=== PATIENT | female | born 1965 | race Caucasian/White ===

== ENCOUNTER 2021-04-24 16:38 | Inpatient (IN) | payer MEDICAID, SELFPAY ==
--- NOTE | 2021-04-20 21:30 | NUR ---
V/S WAS CHECKED Q 15 MINUTES FOR AN HOUR, CE=212 MG/DL, 2 UNITS HUMOLOG WAS GIVEN SQ TOLERATED WELL.
[~2021-04-24] VITALS: Ht 157.5 cm; Wt 53.1 kg
[2021-04-24 16:46] VITALS: BP 80/40
--- NOTE | 2021-04-24 17:00 | NUR ---
PT W/C ASSISTED TO BED 4.
--- NOTE | 2021-04-24 17:08 | NUR ---
56 Y/O FEMALE BIB FAMILY FOR GEN WEAK X1WEEK. PT DAUGHTER STATES SHE HAS BREAST CANCER AND HAD A LEFT MASTECTOMY AND STARTED CHEMO B0SOWUE AGO. THIS WEEK SHE BECAME MORE WEAK. ON ASSESSMENT PT IS VERY LETHARGIC BUT AROUSED EASILY. WHEN PT STATES +N/NO VOMITING, DENIES FEVER/CHILLS. PMH: BREAST CA NKA
[2021-04-24] MEDS ORDERED: OMEP40EC14 PO (17:28)
[2021-04-24] MEDS ORDERED: GLIP10TE PO (17:28)
[2021-04-24] MEDS ORDERED: DEC4 PO (17:28)
[2021-04-24] MEDS ORDERED: CAPE500T1 PO (17:28)
[2021-04-24] MEDS ORDERED: HYDR-4004 PO (17:28)
[2021-04-24] MEDS ORDERED: ATOR40TA PO (17:28)
[2021-04-24] MEDS ORDERED: SITA50TA3 PO (17:28)
[2021-04-24] MEDS ORDERED: LOSA100T1 PO (17:28)
[2021-04-24] MEDS ORDERED: FAMO-90 PO (17:28)
[2021-04-24] MEDS ORDERED: VITB12 PO (17:28)
[2021-04-24] MEDS ORDERED: METF850T PO (17:28)
[2021-04-24] MEDS ORDERED: ASPI-1822 PO (17:28)
[2021-04-24] MEDS ORDERED: NACL 0.9% 1,500 ML IV SCH (17:35)
--- NOTE | 2021-04-24 17:56 | NUR ---
XRAY AT BEDSIDE
--- NOTE | 2021-04-24 18:00 | NUR ---
DR LIVINGSTON AT BEDSIDE EXAMINING PT
[2021-04-24] MEDS ORDERED: INSU100S5 SUBQ (18:05)
[2021-04-24] MEDS ORDERED: CANNIBUS IH (18:05)
[2021-04-24 18:09] LABS: BASOPHILS % (AUTO) 0.3 % (0.0-2.0); HEMATOCRIT 30.5 % (36-48); HEMOGLOBIN 10.6 g/dL (12.0-16.0); LYMPHOCYTES # (AUTO) 0.2 K/uL (2.5-16.5); LYMPHOCYTES % (AUTO) 2.9 % (20.5-51.1); MEAN CORPUSCULAR HEMOGLOBIN 34 pg (27-31); MEAN CORPUSCULAR HGB CONC 35 g/dL (33-37); MEAN CORPUSCULAR VOLUME 96.7 fL (80-94); MONOCYTES # (AUTO) 0.2 K/uL (0.8-1.0); MONOCYTES % (AUTO) 2.4 % (1.7-9.3); NEUTROPHILS # (AUTO) 6.3 K/uL (1.8-7.7); NEUTROPHILS % (AUTO) 94.4 % (42.2-75.2); PLATELET COUNT (AUTO) 62 K/uL (140-450); RED BLOOD CELL COUNT(AUTO) 3.16 MIL/uL (4.20-5.40); RED CELL DISTRIBUTION WIDTH 15.6 % (11.6-13.7); WHITE BLOOD COUNT (AUTO) 6.7 K/uL (4.8-10.8)
[2021-04-24] MEDS ORDERED: cefTRIAXone 2,000 MG in DEXTROSE 5% 100 ML IV ONE (18:45)
[2021-04-24 18:56] LABS: ALBUMIN 3.2 g/dL (3.4-5.0); ANION GAP 14.2 (8-16); CARBON DIOXIDE 22.9 mmol/L (21-32); CREATININE 0.5 mg/dL (0.6-1.3); POTASSIUM 3.1 mmol/L (3.5-5.1); TOTAL BILIRUBIN 0.9 mg/dL (0.0-1.0)
[2021-04-24] MEDS ORDERED: cefTRIAXone 2,000 MG VIAL ONE (18:57)
--- NOTE | 2021-04-24 19:14 | NUR ---
received report from Kush PEDRO for continuity of care
--- NOTE | 2021-04-24 19:14 | NUR ---
Radiology at bedside
--- NOTE | 2021-04-24 19:14 | NUR ---
REPORT GIVEN TO CODY PEDRO FOR CONTINUITY OF CARE
[2021-04-24 19:19] LABS: PROTHROMBIN TIME 10.1 secs (10.8-13.4)
--- NOTE | 2021-04-24 19:35 | NUR ---
COVID ESTHER SWAB COLLECTED AND SENT TO LAB
--- NOTE | 2021-04-24 19:51 | NUR ---
STRAIGHT CATHETERIZATION DONE ORDERED. URINE SAMPLE OBTAINED AND SENT TO LAB.
[2021-04-24 19:59] LABS: APPEARANCE,URINE CLEAR (CLEAR); BILIRUBIN,URINE NEGATIVE (NEGATIVE); BLOOD, URINE NEGATIVE (NEGATIVE); COLOR,URINE ORANGE (YELLOW); LEUKOCYTE ESTERASE ,URINE NEGATIVE (NEGATIVE); NITRITE, URINE NEGATIVE (NEGATIVE); UGLUCOSE 2+ (NEGATIVE)
--- NOTE | 2021-04-24 20:03 | NUR ---
Note melissaone in EDM - 04/24/21 at 2007 by ESTHER Patient discharged with v/s stable. Written and verbal after care instructions given and explained. Patient alert, oriented and verbalized understanding of instructions. Ambulatory with steady gait. All questions addressed prior to discharge. IV ACCESS AND ID band removed. Patient advised to follow up with PMD. Rx of OZZIE SANCHEZ given. Patient educated on indication of medication including possible reaction and side effects. Opportunity to ask questions provided and answered.
--- NOTE | 2021-04-24 20:16 | NUR ---
PT TAKEN TO CT
--- NOTE | 2021-04-24 20:26 | NUR ---
PT BACK FROM CT
--- NOTE | 2021-04-24 20:34 | NUR ---
REPORT GIVEN TO STAS PEDRO VIA PHONE
[2021-04-24 20:41] VITALS: BP 100/76
--- NOTE | 2021-04-24 20:41 | NUR ---
PATIENT BROUGHT IN BY A GURNEY FROM THE ED. PATIENTS CHIEF COMPLAINT IS GENERALIZED WEAKNESS, SOB, BURNING WHEN URINATING, AND INCREASED FATIGUE. PATIENT DIAGNOSIS IS METABOLIC ENCEPHALOPATHY, HYPONATREMIA (SODIUM LEVEL 126), AND PNEUMONIA. VITALS SIGNS: RR: 18, HR 76, BP 100/76, SPO2 100, TEMP 98.3. PATIENT IS ALERT AND ORIENTED X2, PERSON AND PLACE. PATIENT ON TELEMONITOR SHOWING SIGNS OF SINUS RHYTHM. PATIENT RR 18 ON ROOM AIR SHOWING NO SIGNS OF RESPIRATORY DISTRESS, SATING AT 100%. PATIENT STATED LAST BOWEL MOVEMENT WAS THIS MORNING 04/24/21. PATIENT COMPLAINS OF BURNING WHEN URINATING AND INCREASED FREQUENCY. PATIENT HAS A MED PORT ON HER RIGHT CHEST. PATIENT RECEIVES CHEMO THERAPY FOR BREAST CANCER SHE WAS DIAGNOSED WITH 1 YEAR AND 3 MONTHS AGO. PATIENT HAS MULTIPLE BRUISES SCATTERED ACROSS HER BODY. RED LUMP NOTED ON UPPER LEFT EXTREMITY AND BACK. PATIENT HAS A 20GAUGE RIGHT AC IN PLACE THAT IS CLEAN, DRY, INTACT AND PATENT. FALL PRECAUTIONS IN PLACE. EDUCATION PROVIDED ON THE CALL LIGHT THAT IS WITHIN REACH. WILL CONTINUE TO MONITOR.
--- NOTE | 2021-04-24 20:42 | NUR ---
RECEIVED PATIENT FROM CODY. PT BROUGHT IN VIA [facility]. PT IS AAOX2-3 SELF,PLACE AND TIME. BIB FAMILY FOR C/C GENERALIZED WEAKNESS, SOB, BURNING WHEN URINATING, AND INCREASED FATIGUE. DX:METABOLIC ENCEPHALOPATHY, HYPONATREMIA, AND PNEUMONIA. RESPIRATIONS ARE EQUAL AND UNLABORED ON ROOM AIR. LUNG SOUNDS ARE CLEAR. PT SAT WELL 100%. PT WITH PMH OF BREAST CANCER WITH L MASTECTOMY HAS MEDI PORT ON R UPPER CHEST RECEIVING CHEMO 3X/WEEK FOR 4 WEEKS CURRENTLY ON 3RD WEEK. SKIN IS INTACT BUT, HAS MULTIPLE BRUISES SCATTERED ACROSS HER BODY. RED LUMP NOTED ON UPPER LEFT EXTREMITY AND BACK. IV ON RAC 20G AC IS CLEAN, DRY, INTACT AND PATENT. PT ENDORSES HX OF FALLS WITH GEN WEAKNESS USES WALKER AT HOME. FALL PRECAUTIONS IN PLACE. MRSA SWAB OBTAINED. ORIENTED PT TO ROOM, STAFF, CALL LIGHT, AND VISITOR POLICY. ALL NEEDS MET. WILL CONTINUE TO MONITOR.
--- NOTE | 2021-04-24 20:55 | NUR ---
RECEIVED CRITICAL CT HEAD RESULTS PAGED DR SIN. NO NEW ORDERS MD WILL EXPLAIN RESULTS TO PATIENT TOMORROW.
--- NOTE | 2021-04-24 21:00 | NUR ---
Patient will be admitted to care of DR. SIN. Admited to TELEMETRY. Will go to room 111A. Belongings list completed. Report to STAS PEDRO VIA PHONE.
--- NOTE | 2021-04-24 21:07 | NUR ---
PT REQUESTING FOR DAUGHTER CATA TO BE UPDATED. CATA CONTACTED AND UPDATE GIVEN. . PT AND DAUGHTER CURRENTLY ON THE PHONE WILL CONTINUE TO MONITOR.
[2021-04-24] MEDS ORDERED: KCL 20 MEQ/WATER INJ PREMIX 200 ML IV ONE (21:10)
[2021-04-25] VITALS: BP 95/64
--- NOTE | 2021-04-25 00:18 | NUR ---
ROUNDED ON PATIENT. PATIENT IS RESTING COMFORTABLY IN BED SHOWING NO SIGNS OF ACUTE DISTRESS. RESPIRATIONS ARE EVEN AND UNLABORED. SAFETY MEASURES IN PLACE, CALL LIGHT WITHIN REACH. WILL CONTINUE TO MONITOR.
[2021-04-25] MEDS ORDERED: DEXTROSE 50% 50 ML SYR IVP PRN (00:50)
[2021-04-25] MEDS ORDERED: ACETAMINOPHEN 325 MG TAB PO PRN ×2 (01:20→09:20)
--- NOTE | 2021-04-25 01:20 | NUR ---
PATIENT REPOSITIONED FOR COMFORT MEASURES. PATIENT REPORTS BEING MORE COMFORTABLE AND THAT HER NEEDS ARE MEET. RESPIRATORY EVEN AND UNLABORED ON ROOM AIR SHOWING NO SIGNS OF ACUTE DISTRESS. SAFETY MEASURES IN PLACE WITH CALL LIGHT WITHIN REACH. WILL CONTINUE TO MONITOR.
--- NOTE | 2021-04-25 02:26 | NUR ---
ROUNDED ON PATIENT. PATIENT IS ASLEEP IN BED SHOWING NO SIGNS OF ACUTE DISTRESS. RESPIRATIONS ARE EVEN AND UNLABORED. SAFETY MEASURES IN PLACE, CALL LIGHT WITHIN REACH. WILL CONTINUE TO MONITOR.
--- NOTE | 2021-04-25 03:57 | NUR ---
ROUNDED ON PATIENT. PATIENT IS ASLEEP IN BED, BREATHING EVEN AND UNLABORED WITH NO ACUTE DISTRESS NOTED. SAFETY MEASURES IN PLACE WITH CALL LIGHT WITHIN REACH. WILL CONTINUE TO MONITOR.
[2021-04-25 04:00] VITALS: BP 107/63
[2021-04-25] MEDS: BLOOD GLUCOSE MONITORING 1 DEV DEV FS SCH ×4 (06:08→21:00)
[2021-04-25] MEDS: INSULIN LISPRO SLIDING SCALE 100 UNITS/ML VIAL SUBQ PRN ×3 (06:09→22:15)
--- NOTE | 2021-04-25 06:15 | NUR ---
BLOOD GLUCOSE WAS TAKEN, 232, PER SLIDING SCALE 4 UNITS OF INSULIN WAS ADMINISTERED. PATIENT EDUCATION WAS PROVIDED AND PATIENT VERBALIZED UNDERSTANDING. SAFETY MEASURES IN PLACE. CALL LIGHT WITHIN REACH. WILL CONTINUE TO MONITOR.
[2021-04-25 06:56] LABS: ANION GAP 15.1 (8-16); CARBON DIOXIDE 23.7 mmol/L (21-32); CREATININE 0.4 mg/dL (0.6-1.3); POTASSIUM 3.8 mmol/L (3.5-5.1)
[2021-04-25 06:59] LABS: MAGNESIUM 1.7 mg/dL (1.8-2.4); PHOSPHORUS 2.6 mg/dL (2.5-4.9)
--- NOTE | 2021-04-25 07:13 | NUR ---
PATIENT WAS ENDORSED TO DAY SHIFT FOR CONTINUITY OF CARE. POC DISCUSSED. PATIENT IN STABLE CONDITION.
--- NOTE | 2021-04-25 07:18 | NUR ---
RECEIVED REPORT FROM NIGHTSHIFT NURSE. PT RESTING IN BED. ABLE TO MAKE SOME NEEDS KNOWN. RESPIRATIONS EVEN AND UNLABORED WITH NO SOB OR RESPIRATORY DISTRESS. SKIN WARM AND DRY TO TOUCH. IV SITE ON RAC 20G IS CLEAN, DRY, AND INTACT. SAFETY MEASURES IN PLACE. WILL CONTINUE TO MONITOR
--- NOTE | 2021-04-25 07:30 | NUR ---
DAUGHTER CALLED AND WANTED AN UPDATE. UPDATE GIVEN. WILL CONTINUE TO MONITOR
[2021-04-25 08:00] VITALS: BP 91/61
[2021-04-25 08:09] LABS: HEMATOCRIT 29.2 % (36-48); HEMOGLOBIN 10.1 g/dL (12.0-16.0); MEAN CORPUSCULAR HEMOGLOBIN 33 pg (27-31); MEAN CORPUSCULAR HGB CONC 35 g/dL (33-37); MEAN CORPUSCULAR VOLUME 96.9 fL (80-94); RED BLOOD CELL COUNT(AUTO) 3.01 MIL/uL (4.20-5.40); RED CELL DISTRIBUTION WIDTH 15.1 % (11.6-13.7)
[2021-04-25 08:41] LABS: PLATELET COUNT (AUTO) 62 K/uL (140-450)
[2021-04-25 08:42] LABS: LYMPHOCYTES % (MANUAL) 6 % (20-46); MONOCYTES % (MANUAL) 4 % (5-12)
--- NOTE | 2021-04-25 08:56 | NUR ---
PATIENT HAS BEEN SCREENED AND CATEGORIZED MODERATE NUTRITION RISK. PATIENT WILL BE SEEN WITHIN 3-5 DAYS OF ADMISSION. 04/27/21 04/29/[address]
--- NOTE | 2021-04-25 09:15 | NUR ---
PT RESTING IN BED. ABLE TO MAKE SOME NEEDS KNOWN. NO SIGNS OF DISTRESS. WILL CONTINUE TO MONITOR
[2021-04-25] MEDS ORDERED: DOCUSATE SODIUM 100 MG GELCAP PO PRN (09:20)
[2021-04-25] MEDS ORDERED: ZOLPIDEM 5 MG TAB PO PRN (09:20)
[2021-04-25] MEDS ORDERED: ONDANSETRON 4 MG/2 ML VIAL IM/IVP PRN (09:20)
--- NOTE | 2021-04-25 09:30 | NUR ---
DAUGHTER CALLED AND WANTED AN UPDATE. UPDATE GIVEN. WILL CONTINUE TO MONITOR
[2021-04-25] MEDS: NACL 0.9% 1,000 ML IV SCH (09:54)
[2021-04-25 10:24] LABS: ALBUMIN 3.1 g/dL (3.4-5.0); ANION GAP 14.7 (8-16); CARBON DIOXIDE 23.8 mmol/L (21-32); CREATININE 0.4 mg/dL (0.6-1.3); POTASSIUM 3.5 mmol/L (3.5-5.1); TOTAL BILIRUBIN 0.5 mg/dL (0.0-1.0)
[2021-04-25 10:32] LABS: FREE T4 (FREE THYROXINE) 0.66 ng/dL (0.76-1.46); MAGNESIUM 1.8 mg/dL (1.8-2.4); PHOSPHORUS 2.7 mg/dL (2.5-4.9); THYROID STIMULATING HORMONE 0.31 uIU/mL (0.34-3.74)
[2021-04-25] MEDS ORDERED: MAG SULF 2000 MG/WATER PREMIX 50 ML IV SCH (11:15)
--- NOTE | 2021-04-25 11:30 | NUR ---
PT BLOOD SUGAR IS 169. PRN INSULIN TO BE ADMINISTERED PRESCRIBED PER MD ORDER. WILL CONTINUE TO MONITOR
[2021-04-25 12:00] VITALS: BP 90/54
--- NOTE | 2021-04-25 12:15 | NUR ---
ADMINISTERED PRN INSULIN PRESCRIBED PER MD ORDER. PT TOLERATED WELL. SAFETY MEASURES IN PLACE. WILL CONTINUE TO MONITOR
--- NOTE | 2021-04-25 13:20 | NUR ---
INSERTED CARDONA CATH PRESCRIBED PER MD ORDER. PT TOLERATED WELL. SAFETY MEASURES IN PLACE. WILL CONTINUE TO MONITOR
--- NOTE | 2021-04-25 14:12 | NUR ---
DC JILLIAN: RECEIVED ORDER TO ARRANGE DC TO [facility] FOR PT. PER PATIENTS DAUGHTER SHE IS REQUESTING [facility]. FAXED TO [facility] WILL FOLLOW UP. Addendum: 04/26/21 at 1058 by Arianna Ni CM JESSICA SIMMS: FOLLOWED UP WITH [facility] AND SPOKE TO UNFORTUNATELY, THEY CAN NOT ACCEPT PATIENT BECAUSE MEDICAL WOULD NOT COVER SKILLED BENEFITS FOR PT AND CHEMO THERAPY. Addendum: 04/27/21 at 1046 by Arianna Ni CM JESSICA WALSH: FAXED ALSO TO [facility], [facility], [facility], AND [facility] Addendum: 04/27/21 at 1646 by Arianna Ni CM JESSICA WALSH: RECEIVED A CALL FROM JOHAN AT [facility] THEY CAN NOT ACCEPT PATIENT.
--- NOTE | 2021-04-25 14:13 | NUR ---
LATE ENTRY -- ROCEPHIN INFUSION COMPLETED AT 1937 [place] [address]/24/21
[2021-04-25] MEDS: MORPHINE SULFATE 2 MG/ML SYR IVP PRN (14:43)
--- NOTE | 2021-04-25 14:43 | NUR ---
PATIENT COMPLAINED OF SEVERE BACK PAIN. PRN MORPHINE ADMINISTERED PRESCRIBED PER MD ORDER. PT TOLERATED WELL. SAFETY MEASURES IN PLACE. WILL CONTINUE TO MONITOR
[2021-04-25 16:00] VITALS: BP 120/61
--- NOTE | 2021-04-25 16:00 | NUR ---
DAUGHTER CATA CALLED AND WANTED AN UPDATE. UPDATE GIVEN. WILL CONTINUE TO MONITOR
--- NOTE | 2021-04-25 16:30 | NUR ---
PT BLOOD SUGAR IS 137. NO INSULIN NEEDED AT THIS TIME. SAFETY MEASURES IN PLACE. WILL CONTINUE TO MONITOR
--- NOTE | 2021-04-25 18:03 | NUR ---
ADMINISTERED SCHED MED PRESCRIBED PER MD ORDER. PT TOLERATED WELL. SAFETY MEASURES IN PLACE. WILL CONTINUE TO MONITOR
--- NOTE | 2021-04-25 19:15 | NUR ---
ENDORSED TO NIGHTSHIFT AT BEDSIDE FOR CONTINUITY OF CARE. PT IS STABLE
--- NOTE | 2021-04-25 19:16 | NUR ---
REPORT GIVEN FROM AM NURSE. PT IS AWAKE , ALERT , ON BED. IVF INFUSING ON THE RAC AT 60 ML/HR. NO SIGNS OF DISTRESS/SOB NOTED . RESPIRATION EVEN UNLABORED. SKIN WARM AND DRY TO TOUCH. FC DRAINING WELL TO YELLOW COLORED URINE. DENIES PAIN. WILL CONTINUE TO MONITOR.
[2021-04-25 20:00] VITALS: BP 103/65
[2021-04-25] MEDS ORDERED: metroNIDAZOLE 500 MG/NS PREMIX 100 ML IV SCH (21:00)
[2021-04-25 21:55] LABS: BARBITURATE, URINE NEGATIVE ng/ml (NEG <=200); BENZODIAZEPINE, URINE NEGATIVE ng/mL (NEG <=200); CANNABINOID, URINE POSITIVE ng/mL (NEG <=50); COCAINE, URINE NEGATIVE ng/mL (NEG <=300); OPIATE, URINE NEGATIVE ng/mL (NEG <=2000); PHENCYCLIDINE SCREEN,URINE NEGATIVE ng/mL (NEG <=25)
--- NOTE | 2021-04-25 22:09 | NUR ---
ADMINISTERED MEDICATION PER MD ORDERED.
[2021-04-25] MEDS ORDERED: VANCOMYCIN PER PHARMACY MC PRN (23:20)
[2021-04-25] MEDS ORDERED: VANCOMYCIN 1GM/DEXT 5% PREMIX 200 ML IV SCH (23:50)
[2021-04-26] VITALS: BP 98/71
[2021-04-26] MEDS ORDERED: VANCOMYCIN 1,000 MG VIAL ONE (00:51)
[2021-04-26] MEDS: NACL 0.9% 1,000 ML IV SCH ×2 (02:00→17:46)
[2021-04-26] MEDS: HYDROcodone/APAP 5/325 MG 1 TAB TAB PO PRN ×2 (02:07→23:52)
--- NOTE | 2021-04-26 02:08 | NUR ---
texted PICC RN for PICC placement, waiting for PICC RN to text back
[2021-04-26 04:00] VITALS: BP 100/48
[2021-04-26 06:42] LABS: HEMATOCRIT 26.6 % (36-48); HEMOGLOBIN 8.7 g/dL (12.0-16.0); MEAN CORPUSCULAR HEMOGLOBIN 32 pg (27-31); MEAN CORPUSCULAR HGB CONC 33 g/dL (33-37); MEAN CORPUSCULAR VOLUME 97.5 fL (80-94); PLATELET COUNT (AUTO) 46 K/uL (140-450); RED BLOOD CELL COUNT(AUTO) 2.73 MIL/uL (4.20-5.40); RED CELL DISTRIBUTION WIDTH 15.7 % (11.6-13.7); WHITE BLOOD COUNT (AUTO) 3.6 K/uL (4.8-10.8)
[2021-04-26] MEDS: BLOOD GLUCOSE MONITORING 1 DEV DEV FS SCH ×4 (06:46→21:30)
[2021-04-26] MEDS: INSULIN LISPRO SLIDING SCALE 100 UNITS/ML VIAL SUBQ PRN ×4 (06:47→21:32)
[2021-04-26 07:07] LABS: ANION GAP 13.6 (8-16); CARBON DIOXIDE 21.2 mmol/L (21-32); CREATININE 0.3 mg/dL (0.6-1.3)
[2021-04-26 07:08] LABS: T4 (THYROXINE) 4.3 ug/dL (4.5-12.0)
[2021-04-26 07:11] LABS: CHOL/HDL RATIO 1.7 (1-4.5); MAGNESIUM 1.9 mg/dL (1.8-2.4)
--- NOTE | 2021-04-26 07:25 | NUR ---
ENDORSED TO AM NURSE FOR CONTINUITY OF CARE. PT IS STABLE
--- NOTE | 2021-04-26 07:30 | NUR ---
RECEIVED BEDSIDE ENDORSEMENT FROM NIGHTSDCFT NURSE FOR CONTINUITY OF CARE.
[2021-04-26 07:46] LABS: EOSINOPHILS % (MANUAL) 1 % (0-4); LYMPHOCYTES % (MANUAL) 9 % (20-46); MONOCYTES % (MANUAL) 4 % (5-12)
[2021-04-26 07:47] LABS: POTASSIUM 2.8 mmol/L (3.5-5.1)
[2021-04-26 08:00] VITALS: BP 97/53
[2021-04-26] MEDS ORDERED: POTASSIUM CHLORIDE 10 MEQ TABER PO SCH (09:00)
[2021-04-26] MEDS ORDERED: POTASSIUM CHLORIDE 40 MEQ, LIDOCAINE MPF 1% 25 MG in NACL 0.9% 250 ML IV SCH (09:30)
--- NOTE | 2021-04-26 09:33 | NUR ---
ADMINISTERED PRESCRIBED MEDS PER MD ORDER. PATIENT TOLERATED WELL. MEDICATION EDUCATION REINFORCEMENT NEEDED. SAFETY MEASURES IN PLACE. WILL CONTINUE TO MONITOR.
[2021-04-26 12:00] VITALS: BP 104/57
--- NOTE | 2021-04-26 12:37 | NUR ---
POC DISCUSSED WITH DR. YOUNG. PENDING WOUND CONSULT, PER DR. YOUNG PT WILL HAVE SURGEON CONSULT WITH I&D.
[2021-04-26] MEDS: VANCOMYCIN HCL 1.25 GM in DEXTROSE 5% 250 ML IV SCH (13:17)
--- NOTE | 2021-04-26 13:23 | NUR ---
ADMINISTERED PRESCRIBED MEDS AND PRN INSULIN FOR BLOOD GLUCOSE 309 PER MD ORDER. PATIENT TOLERATED WELL. MEDICATION EDUCATION PROVIDED. PATIENT VERBALIZED UNDERSTANDING. SAFETY MEASURES IN PLACE. WILL CONTINUE TO MONITOR.
[2021-04-26] MEDS: MORPHINE SULFATE 2 MG/ML SYR IVP PRN ×2 (14:28→21:20)
--- NOTE | 2021-04-26 14:36 | NUR ---
ADMINISTERED PRESCRIBED MED FOR PRN 10/10 PAIN. PATIENT CRYING IN BED, COMPLAINS OF GENERALIZED PAIN THROUGHOUT BODY. PATIENT TOLERATED MEDICATION WELL. MEDICATION EDUCATION PROVIDED. PATIENT VERBALIZED UNDERSTANDING. SAFETY MEASURES IN PLACE. WILL CONTINUE TO MONITOR.
[2021-04-26 16:00] VITALS: BP 110/63
--- NOTE | 2021-04-26 17:46 | NUR ---
ADMINISTERED PRESCRIBED MEDS AND PRN INSULIN FOR BLOOD GLUCOSE 237. PATIENT VERBALIZED UNDERSTANDING. SAFETY MEASURES IN PLACE. WILL CONTINUE TO MONITOR.
--- NOTE | 2021-04-26 19:11 | NUR ---
BEDSIDE ENDORSEMENT PROVIDED TO NIGHTSHIFT NURSE FOR CONTINUITY OF CARE.
--- NOTE | 2021-04-26 19:12 | NUR ---
RECEIVED REPORT FROM MORNING NURSE. PT RESTING, IVF OF NS INFUSING WELL AT 60 ML/HR. NO SOB NOTED. WILL CONTINUE TO MONITOR.
[2021-04-26 20:00] VITALS: BP 127/75
--- NOTE | 2021-04-26 21:00 | NUR ---
SEEN AND EXAMINED BY DR. EDMONDS WITH NEW ORDERS NOTED AND CARRIED OUT. FOR I & D TOMORROW.
--- NOTE | 2021-04-26 21:37 | NUR ---
BS - 186 , ADMINISTERED INSULIN PER SLIDING SCALE
--- NOTE | 2021-04-26 23:52 | NUR ---
PT IN PAIN 05/11, NORCO PRN ADMINISTERED.
[2021-04-27] VITALS: BP 110/63
[2021-04-27] MEDS: VANCOMYCIN HCL 1.25 GM in DEXTROSE 5% 250 ML IV SCH ×2 (00:53→12:19)
--- NOTE | 2021-04-27 01:00 | NUR ---
VANCOMYCIN IV GIVEN ORDERED BY .
[2021-04-27 04:00] VITALS: BP 110/65
--- NOTE | 2021-04-27 04:17 | NUR ---
MADE ROUNDS , PATIENT ASLEEP , NO ACUTE DISTRESS. ALL NEEDS MET
[2021-04-27] MEDS: INSULIN LISPRO SLIDING SCALE 100 UNITS/ML VIAL SUBQ PRN ×2 (06:37→22:16)
[2021-04-27] MEDS: BLOOD GLUCOSE MONITORING 1 DEV DEV FS SCH ×4 (06:40→21:34)
[2021-04-27 06:45] LABS: MEAN CORPUSCULAR HEMOGLOBIN 34 pg (27-31); MEAN CORPUSCULAR HGB CONC 34 g/dL (33-37)
[2021-04-27 06:47] LABS: HEMATOCRIT 29.3 % (36-48); MEAN CORPUSCULAR VOLUME 98.5 fL (80-94); RED BLOOD CELL COUNT(AUTO) 2.98 MIL/uL (4.20-5.40); RED CELL DISTRIBUTION WIDTH 15.9 % (11.6-13.7); WHITE BLOOD COUNT (AUTO) 3.3 K/uL (4.8-10.8)
[2021-04-27 07:07] LABS: ANION GAP 22.2 (8-16); CARBON DIOXIDE 20.4 mmol/L (21-32); CREATININE 0.5 mg/dL (0.6-1.3); POTASSIUM 3.6 mmol/L (3.5-5.1)
[2021-04-27 07:14] LABS: PLATELET COUNT (AUTO) 55 K/uL (140-450)
[2021-04-27 07:15] LABS: LYMPHOCYTES % (MANUAL) 12 % (20-46); MONOCYTES % (MANUAL) 6 % (5-12)
[2021-04-27 07:18] LABS: MAGNESIUM 1.7 mg/dL (1.8-2.4); PHOSPHORUS 2.4 mg/dL (2.5-4.9)
--- NOTE | 2021-04-27 07:25 | NUR ---
ENDORSED TO THE MORNING RN FOR CONTINUITY OF CARE.
--- NOTE | 2021-04-27 07:30 | NUR ---
RECEIVED BEDSIDE ENDORSEMENT FROM NIGHTSVAFT NURSE FOR CONTINUITY OF CARE.
[2021-04-27 08:00] VITALS: BP 100/60
--- NOTE | 2021-04-27 09:09 | NUR ---
PATIENT ROUNDING PERFORMED. PATIENT RESTING IN BED, VISIBLE RISE AND FALL OF CHEST NOTED W/ EVEN AND UNLABORED RESPIRATIONS. PATIENT SHOWS NO SIGNS OF DISTRESS OR DISCOMFORT. SAFETY MEASURES IN PLACE. WILL CONTINUE TO MONITOR.
[2021-04-27 12:00] VITALS: BP 116/67
[2021-04-27] MEDS: NACL 0.9% 1,000 ML IV SCH (12:19)
--- NOTE | 2021-04-27 12:19 | NUR ---
ADMINISTERED PRESCRIBED MEDS PER MD ORDER. PATIENT TOLERATED WELL. MEDICATION EDUCATION PROVIDED. PATIENT VERBALIZED UNDERSTANDING. SAFETY MEASURES IN PLACE. WILL CONTINUE TO MONITOR.
[2021-04-27] MEDS: HYDROcodone/APAP 5/325 MG 1 TAB TAB PO PRN (14:36)
--- NOTE | 2021-04-27 14:40 | NUR ---
ADMINISTERED PRN PAIN MED. PATIENT TOLERATED WELL. MEDICATION EDUCATION PROVIDED. PATIENT VERBALIZED UNDERSTANDING. SAFETY MEASURES IN PLACE. WILL CONTINUE TO MONITOR.
[2021-04-27 16:00] VITALS: BP 97/69
[2021-04-27] MEDS ORDERED: BLOOD GLUCOSE MONITORING 1 DEV DEV FS SCH (16:45)
[2021-04-27] MEDS ORDERED: fentaNYL citrate 0.05 MG/ML VIAL IVP PRN (16:45)
[2021-04-27] MEDS ORDERED: LACTATED RINGERS 1,000 ML IV SCH (16:45)
[2021-04-27] MEDS ORDERED: MEPERIDINE 25 MG/ML SYR IVP PRN (16:45)
[2021-04-27] MEDS ORDERED: diphenhydrAMINE 50 MG/ML VIAL IVP PRN (16:45)
[2021-04-27] MEDS ORDERED: ONDANSETRON 4 MG/2 ML VIAL IVP PRN (16:45)
--- NOTE | 2021-04-27 17:27 | NUR ---
PATIENT TAKEN TO OR FOR SURGICAL PROCEDURE.
[2021-04-27] MEDS ORDERED: LIDOCAINE MPF 1% 5 ML ONE (17:31)
[2021-04-27] MEDS ORDERED: BUPIVACAINE-MPF 0.25% 30 ML VIAL INJ ONE (17:32)
[2021-04-27] MEDS ORDERED: BUPIVACAINE-MPF/EPI 0.25% 30 ML VIAL INJ ONE (17:33)
[2021-04-27] MEDS ORDERED: GLYCOPYRROLATE 0.2 MG/ML VIAL ONE (17:37)
[2021-04-27] MEDS ORDERED: SEVOFLURANE 250 ML BTL INH ONE (17:37)
[2021-04-27] MEDS ORDERED: LIDOCAINE 2% 100 MG/5 ML SYR IVP ONE (17:37)
[2021-04-27] MEDS ORDERED: ROCURONIUM 50 MG/5 ML VIAL IV ONE (17:37)
[2021-04-27] MEDS ORDERED: ePHEDrine 50 MG/ML VIAL ONE (17:37)
[2021-04-27] MEDS ORDERED: NEOSTIGMINE 1:1000 10 MG/10 ML VIAL ONE (17:37)
[2021-04-27] MEDS ORDERED: METOCLOPRAMIDE 10 MG/2 ML INJ VIAL ONE (17:37)
[2021-04-27] MEDS ORDERED: ONDANSETRON 4 MG/2 ML VIAL ONE (17:37)
[2021-04-27] MEDS ORDERED: SUCCINYLCHOLINE CHLORIDE 200 MG/10 ML VIAL IVP ONE (17:37)
[2021-04-27] MEDS ORDERED: fentaNYL citrate 0.05 MG/ML VIAL ONE (17:37)
[2021-04-27] MEDS ORDERED: ETOMIDATE 20 MG/10 ML VIAL IVP ONE (17:37)
--- NOTE | 2021-04-27 19:07 | NUR ---
BEDSIDE ENDORSEMENT PROVIDED TO NIGHTSHIFT NURSE FOR CONTINUITY OF CARE; PATIENT STILL IN OR.
[2021-04-27 20:00] VITALS: BP 142/70
--- NOTE | 2021-04-27 20:00 | NUR ---
RECEIVED REPORT THAT THE PATIENT WAS IN OR FOR DEBRIDEMENT OF UPPER BACK AND LEFT UPPER ARM WOUND,
--- NOTE | 2021-04-27 21:00 | NUR ---
PATIENT ARRIVED FROM THE OR, AWAKE AND ALERT, COHERENT, V/S WITHIN NORMAL LIMIT AT 97.5 F, 18, 92, 116/68, 95 % OXYGEN SATURATION.
--- NOTE | 2021-04-27 22:00 | NUR ---
V/S WAS CHECKED AND LOGGED Q 15 MINUTES X 4, Q 30 MINUTES X 2, ALL WITHIN THE NORMAL RANGE OF LIMIT EXCEPT FOR HR ELEVATED ABOVE 100 TO 111,
[2021-04-28] VITALS: BP 108/78
--- NOTE | 2021-04-28 02:50 | NUR ---
PATIENT COMPLAIN OF PAIN FROM HER DEBRIDED WOUND 07/11, DIALUDID 1 MG/IVP WAS GIVEN VIA IV PUSH.
[2021-04-28] MEDS: HYDROmorphone 1 MG/ML AMP IVP PRN (02:56)
[2021-04-28] MEDS: NACL 0.9% 1,000 ML IV SCH (04:21)
[2021-04-28 04:36] VITALS: BP 119/78
[2021-04-28] MEDS: MORPHINE SULFATE 4 MG/ML SYR IV PRN ×2 (05:31→17:28)
[2021-04-28 06:19] LABS: ANION GAP 15.5 (8-16); CARBON DIOXIDE 22.2 mmol/L (21-32); CREATININE 0.4 mg/dL (0.6-1.3)
[2021-04-28 06:22] LABS: MAGNESIUM 1.3 mg/dL (1.8-2.4); PHOSPHORUS 2.9 mg/dL (2.5-4.9)
[2021-04-28 06:24] LABS: POTASSIUM 2.7 mmol/L (3.5-5.1)
[2021-04-28 06:27] LABS: MEAN CORPUSCULAR HEMOGLOBIN 34 pg (27-31); MEAN CORPUSCULAR HGB CONC 35 g/dL (33-37); MEAN CORPUSCULAR VOLUME 97.6 fL (80-94); RED BLOOD CELL COUNT(AUTO) 2.66 MIL/uL (4.20-5.40); WHITE BLOOD COUNT (AUTO) 2.3 K/uL (4.8-10.8)
[2021-04-28 07:25] LABS: PLATELET COUNT (AUTO) 50 K/uL (140-450)
[2021-04-28 07:27] LABS: LYMPHOCYTES % (MANUAL) 11 % (20-46); MONOCYTES % (MANUAL) 4 % (5-12)
--- NOTE | 2021-04-28 07:30 | NUR ---
RECEIVED ENDORSEMENT AT THIS TIME PT IS RESTING IN BED, CONFUSED. UNABLE TO ANSWER QUESTIONS PER BARK GRINDER REPORT PT HAS HAD INCREASED CONFUSION SINCE YESTERDAY. PT GETTING IVF TO RIGHT PICC LINE AT THIS TIME. ON ROOM AIR. POC DISCUSSED AND WILL CONTINUE
--- NOTE | 2021-04-28 07:30 | NUR ---
BLOOD SUGAR WAS CHECKED 168 MG/DL, 2 UNITS OF REGULAR INSULIN WAS ADMINISTERED SUBCUTANEOUSLY TO COVER,
[2021-04-28] MEDS: BLOOD GLUCOSE MONITORING 1 DEV DEV FS SCH ×4 (07:52→20:27)
[2021-04-28] MEDS: INSULIN LISPRO SLIDING SCALE 100 UNITS/ML VIAL SUBQ PRN ×2 (07:54→16:55)
--- NOTE | 2021-04-28 07:58 | NUR ---
reports given to incoming RN, care of patient endorsed.
[2021-04-28 08:00] VITALS: BP 131/81
--- NOTE | 2021-04-28 08:10 | NUR ---
RE-NOTIFIED DR. YOUNG OF K AND MG LEVEL. AWAITING ORDERS. PT SEEN BY PHYSICAL THERAPY WHO REPORTS CHANGE IN BASELINE. WOUND CARE NURSE AT BEDSIDE AND REINFORCED DRESSING.
--- NOTE | 2021-04-28 08:25 | NUR ---
POC DISCUSSED WITH CHARGE NURSE, PER CHARGE NURSE SURGEON INSTRUCTIONS TO START DRESSING CHANGE ON POST OP. DAY TWO, TODAY NO WOUND EVALUATION. WOUND DRESSING REINFORCED WITH PT ASSISTANCE PT. ABLE TO SIT UP IN BED WITHOUT DISTRESS. POC DISCUSSED WITH PRIMARY RN.
--- NOTE | 2021-04-28 08:56 | NUR ---
PT ENDORSED TO AM RN FOR CONTINUITY OF CARE. ENDORSED F/U WITH K AND MG SUPPLEMENT. PT IS STABLE AT THIS TIME. LAYING IN BED.
--- NOTE | 2021-04-28 09:00 | NUR ---
RECEIVED REPORT FROM DAY SHIT NURSE FOR CONTINUITY OF CARE. PATIENT IS AWAKE EATING BREAKFAST. WILL CONTINUE TO MONITOR
[2021-04-28] MEDS: VANCOMYCIN HCL 1.25 GM in DEXTROSE 5% 250 ML IV SCH ×2 (09:36→20:27)
[2021-04-28] MEDS: MAGNESIUM OXIDE 400 MG TAB PO SCH (10:10)
--- NOTE | 2021-04-28 10:56 | NUR ---
UNABLE TO GIVE PO K-DUR AND MAG OXIDE. PATIENT IS CONFUSED AND NOT FOLLOWING COMMAND. SPOKE WITH DR. YOUNG IN REGARDS TO PT CONDITION. PER MD WILL CHANGE MEDICATION TO IV.
[2021-04-28] MEDS ORDERED: POTASSIUM CHLORIDE 10 MEQ TABER PO SCH (11:00)
[2021-04-28] MEDS: MORPHINE SULFATE 2 MG/ML SYR IVP PRN (11:05)
--- NOTE | 2021-04-28 11:11 | NUR ---
PT BS 178MG/DL WILL NOT ADMINISTER INSULIN BECAUSE PT IS CONFUSED AND DID NOT EAT BREAKFAST THIS MORNING. REFUSING TO EAT ANYTHING DOPER AT BEDSIDE.
[2021-04-28] MEDS ORDERED: MAG SULF 2000 MG/WATER PREMIX 50 ML IV ONE (11:20)
--- NOTE | 2021-04-28 11:30 | NUR ---
ASSESSED PATIENT PICC LINE ONE OF THE LUMEN IS NOT FLUSHING. NOTIFY MD. WILL CONTINUE TO MONITOR.
[2021-04-28] MEDS ORDERED: ALTEPLASE 2 MG VIAL MC SCH (11:45)
[2021-04-28 12:00] VITALS: BP 108/84
[2021-04-28] MEDS: POTASSIUM CHLORIDE 40 MEQ, LIDOCAINE MPF 1% 25 MG in NACL 0.9% 250 ML IV PRN (12:31)
[2021-04-28] MEDS: DEXT 5% /NACL 0.9% 1,000 ML IV SCH (12:33)
--- NOTE | 2021-04-28 12:37 | NUR ---
ADMINISTERED ALTEPLASE PER MD ORDER. WILL REASSESS.
--- NOTE | 2021-04-28 13:05 | NUR ---
REASSESSED PICC LINE LUMEN FOR PATENCY. ABLE TO ASPIRATE AND FLUSH EASILY WITHOUT DIFFICULTY.
--- NOTE | 2021-04-28 13:27 | NUR ---
PT WENT TO RADIOLOGY
--- NOTE | 2021-04-28 14:42 | NUR ---
2GM OF MAG RIDER GIVEN PER MD ORDER WILL CONTINUE TO MONITOR
[2021-04-28 16:00] VITALS: BP 125/54
[2021-04-28] MEDS ORDERED: NACL 0.9% 1,000 ML IV SCH (16:45)
--- NOTE | 2021-04-28 16:46 | NUR ---
ENDORSED PATIENT TO SHELBI FOR CONTINUITY OF CARE
--- NOTE | 2021-04-28 16:47 | NUR ---
RECEIVED ENDORSEMENT. PT IS STABLE.
--- NOTE | 2021-04-28 17:30 | NUR ---
MORPHINE GIVEN DUE TO YELLING AND DISPLAYING PAIN. SCHEDULED MEDICATION GIVEN TOLERATED PAIN.
--- NOTE | 2021-04-28 19:20 | NUR ---
PT ENDORSED TO SEAM CHECKER RN FOR CONTINUITY CARE. PT IS STABLE.
--- NOTE | 2021-04-28 19:21 | NUR ---
RECEIVED PATIENT FROM AM NURSE FOR CONTINUITY OF CARE. PATIENT IS VINCENTIAN SPEAKING, AWAKE, ALERT AND ORIENTED X2 WITH EPISODE OF CONFUSION. RESPIRATORY EVEN AND UNLABORED, ON ROOM AIR. NO SIGN OF RESPIRATORY DISTRESS NOTED. SKIN WARM, DRY, AND NON DIAPHORETIC. RIGHT UPPER PICC LINE DOUBLE LUMENS, PATENT AND INTACT, INFUSING D5NS AT 60ML/HR. RIGHT CHEST CARMEL CATH. PLAN OF CARE DISCUSSED. PRECAUTION IN PLACE. CALL LIGHT WITHIN REACH. WILL CONTINUE TO MONITOR.
[2021-04-28 20:00] VITALS: BP 156/59
--- NOTE | 2021-04-28 20:27 | NUR ---
BLOOD SUGAR CHECK 127, NO INSULIN NEEDS. SCHEDULE MEDICATION GIVEN WITH EDUCATION, PATIENT UNABLE TO VERBALIZE. PATIENT IS AWAKE, ALERT AND RESPONSE TO NAME. NO SIGN OF RESPIRATORY DISTRESS NOTED. CALL LIGHT WITHIN REACH. WILL CONTINUE TO MONITOR.
[2021-04-28] MEDS: LORazepam 2 MG/ML VIAL IM/IVP PRN (22:48)
--- NOTE | 2021-04-28 22:48 | NUR ---
PATIENT IS AWAKE, MAKING NONCOMPRESSIVE SOUND. PATIENT DENIES PAIN OR DISCOMFORT. ABLE TO FOLLOW MINIMAL COMMAND. ATIVAN PRN ORDER GIVEN WITH EDUCATION, BP 124/105, HR 118. NO SIGN OF RESPIRATORY DISTRESS NOTED. PATIENT TOLERATED WELL. CALL LIGHT WITHIN REACH. WILL CONTINUE TO MONITOR. Addendum: 04/29/21 at 0234 by Will Christiansen RN RN PATIENT IS MAKING INCOMPREHENSIBLE VOICE.
--- NOTE | 2021-04-28 23:30 | NUR ---
ROUND CHECK. PATIENT IS SLEEPING, CHEST RISE AND FALL NOTED. NO SIGN OF RESPIRATORY DISTRESS. PRECAUTION IN PLACE. CALL LIGHT WITHIN REACH. WILL CONTINUE TO MONITOR.
[2021-04-29] VITALS: BP 134/53
--- NOTE | 2021-04-29 | NUR ---
ROUND CHECK. PATIENT IS SLEEPING, CHEST RISE AND FALL, AROUSABLE TO VOICE. NO SIGN OF DISTRESS NOTED. PRECAUTION IN PLACE. CALL LIGHT WITHIN REACH. WILL CONTINUE TO MONITOR.
--- NOTE | 2021-04-29 02:15 | NUR ---
ROUND CHECK. PATIENT IS SLEEPING, CHEST RISE AND FALL NOTED, STILL MAKING INCOMPREHENSIBLE VOICE. NO SIGN OF DISTRESS NOTED. PRECAUTION IN PLACE. CALL LIGHT WITHIN REACH. WILL CONTINUE TO MONITOR.
[2021-04-29 04:00] VITALS: BP 107/57
--- NOTE | 2021-04-29 04:00 | NUR ---
ROUND CHECK. PATIENT IS SLEEPING, CHEST RISE AND FALL NOTED. NO SIGN OF RESPIRATORY DISTRESS NOTED. CALL LIGHT WITHIN REACH. WILL CONTINUE TO MONITOR.
[2021-04-29] MEDS: DEXT 5% /NACL 0.9% 1,000 ML IV SCH ×2 (04:25→21:05)
[2021-04-29] MEDS: BLOOD GLUCOSE MONITORING 1 DEV DEV FS SCH ×4 (06:46→20:47)
[2021-04-29] MEDS: INSULIN LISPRO SLIDING SCALE 100 UNITS/ML VIAL SUBQ PRN ×2 (06:46→12:06)
--- NOTE | 2021-04-29 07:07 | NUR ---
ENDORSED PATIENT TO AM NURSE FOR CONTINUITY OF CARE. PATIENT IS STABLE.
--- NOTE | 2021-04-29 07:08 | NUR ---
REC'D REPORT FROM FORESTRY AIDE NURSE, PT A/0X2 YI SPEAKING, SWALLOW STUDY CURRENTLY BEING PERFORMED, TELEMONITOR IN PLACE, R.U. A PICC INFUSING D5/NS AT 60ML/HR. CARDONA IN PLACE. CALL LIGHT WITHIN REACH. ALL SAFETY PRECAUTIONS IN PLACE.
[2021-04-29 07:22] LABS: MAGNESIUM 1.7 mg/dL (1.8-2.4); PHOSPHORUS 2.3 mg/dL (2.5-4.9)
--- NOTE | 2021-04-29 07:29 | NUR ---
PT WAS SEEN FOR DYSPHAGIA. PT WS ABLE TO SFAELY SWALLOW PUREE DIET WITH NECTAR THICK LIQUID WITHOUT S/S OF ASPIRATION. RECOMMENDATION PURE DIET WITH NECTAR THICK LIQUID
[2021-04-29 07:30] LABS: ANION GAP 10.3 (8-16); CARBON DIOXIDE 24.3 mmol/L (21-32); CREATININE 0.3 mg/dL (0.6-1.3)
[2021-04-29 07:34] LABS: POTASSIUM 2.6 mmol/L (3.5-5.1)
[2021-04-29 08:00] VITALS: BP 118/83
[2021-04-29 08:05] LABS: HEMOGLOBIN 7.4 g/dL (12.0-16.0); LYMPHOCYTES # (AUTO) 0.3 K/uL (2.5-16.5); MONOCYTES # (AUTO) 0.1 K/uL (0.8-1.0)
[2021-04-29 08:16] LABS: BASOPHILS % (AUTO) 0.1 % (0.0-2.0); EOSINOPHILS % (AUTO) 0.3 % (0.0-4.0); HEMATOCRIT 21.5 % (36-48); LYMPHOCYTES % (AUTO) 12.1 % (20.5-51.1); MEAN CORPUSCULAR HEMOGLOBIN 33 pg (27-31); MEAN CORPUSCULAR HGB CONC 35 g/dL (33-37); MEAN CORPUSCULAR VOLUME 96.4 fL (80-94); MONOCYTES % (AUTO) 2.3 % (1.7-9.3); NEUTROPHILS # (AUTO) 2.1 K/uL (1.8-7.7); NEUTROPHILS % (AUTO) 85.2 % (42.2-75.2); RED BLOOD CELL COUNT(AUTO) 2.23 MIL/uL (4.20-5.40); RED CELL DISTRIBUTION WIDTH 16.1 % (11.6-13.7)
--- NOTE | 2021-04-29 08:19 | NUR ---
(04/29/21) RD INITIAL ASSESSMENT COMPLETED PLEASE REFER TO NUTRITION ASSESSMENT UNDER CARE ACTIVITY FOR ESTIMATED NUTRITIONAL NEEDS. RD RECOMMENDATIONS: 1. CONTINUE NPO MEDICALLY APPROPRIATE. 2. IF/WHEN MEDICALLY APPROPRIATE, RESUME REGULAR DIET IN TEXTURE PER CONTINUOUS IMPROVEMENT DIRECTOR REC & ENCOURAGE PO INTAKES > 50% AT EACH MEAL TID. 3. CONSULT RDN PRN. 4. RD WILL F/U 2-3 DAYS; HIGH RISK. MANNY HATFIELD MS, RDN
[2021-04-29] MEDS: MAGNESIUM OXIDE 400 MG TAB PO SCH (08:23)
[2021-04-29] MEDS: MORPHINE SULFATE 4 MG/ML SYR IV PRN ×2 (08:23→13:53)
[2021-04-29] MEDS: VANCOMYCIN HCL 1.25 GM in DEXTROSE 5% 250 ML IV SCH ×2 (08:27→20:45)
[2021-04-29 09:19] LABS: PLATELET COUNT (AUTO) 45 K/uL (140-450)
[2021-04-29 09:20] LABS: WHITE BLOOD COUNT (AUTO) 2.5 K/uL (4.8-10.8)
[2021-04-29] MEDS: POTASSIUM CHLORIDE 40 MEQ, LIDOCAINE MPF 1% 25 MG in NACL 0.9% 250 ML IV PRN (11:05)
[2021-04-29 12:00] VITALS: BP 115/61
[2021-04-29] MEDS: LORazepam 2 MG/ML VIAL IM/IVP PRN (12:07)
--- NOTE | 2021-04-29 14:50 | NUR ---
PT WAS MEDICATED PRIOR TO DRESSING CHANGE. REMOVED GAUZE, ISLAND DRESSING AND FROM LEFT BACK, REMOVED ABD PADS, AND KERLIX WHICH WAS PACKED INTO PT'S WOUND, USED NORMAL SALINE TO WET KERLIX AND SLOWLY PULLED OFF AND OUT OF WOUND, IRRIGATED WOUND AND USING STERILE TECHNIQUE REPLACED KERLIX, SOAKING WITH NORMAL SALINE AND PACKING WOUND INSTRUCTED. ONE ROLL OF KERLIX WAS USED, APPLIED TWO ABDOMINAL PADS AND COVERED WITH 6 ISLAND DRESSING TO ENSURE ABD PADS WERE STABLE. APPLIED LOLA BANDAGE PREVIOUS DRESSING. TWO ADDITIONAL DRESSING CHANGES ON L. UPPER ARM. REMOVED 2x2 FROM WOUND, IRRIGATED WITH NORMAL SALINE AND USING STERILE PROCEDURE PACKED BOTH WOUNDS WITH 1 2x2 GAUZE SOAKED IN NORMAL SALINE, WRAPPED WITH KERLIX AND APPLIED LOLA BANDAGE WAS PREVIOUSLY PLACED ON PT. PT TOLERATED PROCEDURE WELL.
[2021-04-29 16:00] VITALS: BP 119/56
--- NOTE | 2021-04-29 19:20 | NUR ---
ENDORSED PT TO COSMETIC SALES NURSE FOR CONTINUITY OF CARE. PT STABLE, NO SIGN OF DISTRESS, CALL LIGHT WITHIN REACH, ALL SAFETY MEASURES IN PLACE
--- NOTE | 2021-04-29 19:21 | NUR ---
RECEIVED REPORT FROM AM SHIFT NURSE FOR CONTINUITY OF CARE. PT ASLEEP ON BED. NO DISTRESS. IVF OF 0.9 NS AT 60 ML/HR INFUSING ON THE GERBER PICC LINE. CARDONA CATHETER INTACT DRAINING YELLOW COLORED URINE. DRESSINGS DRY INTACT ON THE LEFT UPPER BACK AND LEFT UPPER ARM. SAFETY MEASURES IN PLACE. CALL LIGHT WITHIN REACH. WILL CONTINUE TO MONITOR.
[2021-04-29 20:00] VITALS: BP 129/65
--- NOTE | 2021-04-29 20:46 | NUR ---
VANCOMYCIN IVPB ADMINISTERED ORDERED BY
[2021-04-30] VITALS: BP 112/77
--- NOTE | 2021-04-30 01:30 | NUR ---
DRESSING CHANGED FROM LEFT UPPER BACK, REMOVED ABD PADS, AND KERLIX WHICH WAS PACKED INTO PATIENT'S WOUND, USED NORMAL SALINE TO WET KERLIX AND SLOWLY PULLED OFF AND OUT OF WOUND, IRRIGATED WOUND USING STERILE TECHNIQUE. REPLACED KERLIX, WITH WET TO DRY DRESSING USING NORMAL SALINE AND PACKED WOUND INSTRUCTED. ONE ROLL OF KERLIX WAS USED, APPLIED TWO ABDOMINAL PADS AND SECURED USING FOAM TAPE.
[2021-04-30] MEDS: DEXT 5% /NACL 0.9% 1,000 ML IV SCH ×2 (02:48→13:45)
[2021-04-30] MEDS: MORPHINE SULFATE 4 MG/ML SYR IV PRN ×2 (03:07→23:32)
[2021-04-30 04:00] VITALS: BP 118/64
[2021-04-30 07:13] LABS: MAGNESIUM 1.6 mg/dL (1.8-2.4); PHOSPHORUS 3.4 mg/dL (2.5-4.9)
[2021-04-30] MEDS: BLOOD GLUCOSE MONITORING 1 DEV DEV FS SCH ×4 (07:13→21:00)
[2021-04-30] MEDS: INSULIN LISPRO SLIDING SCALE 100 UNITS/ML VIAL SUBQ PRN ×2 (07:14→22:27)
--- NOTE | 2021-04-30 07:20 | NUR ---
ENDORSED TO THE AM NURSE FOR CONTINUITY OF CARE. PT IN STABLE CONDITION.
--- NOTE | 2021-04-30 07:20 | NUR ---
REC'D REPORT FROM PLANT ANATOMY TEACHER NURSE, PT SLEEPING, MOANS WHEN MOVING, RA. CARDONA CATHETER IN PLACE, PICC GERBER INFUSINGD5/NS AT 60ML/HR, PATENT. TELEMONITOR IN PLACE, CALL LIGHT WITHIN REACH, BED LOWEST POSITION. WILL CONTINUE TO MONITOR.
[2021-04-30 07:28] LABS: ANION GAP 12.7 (8-16); CARBON DIOXIDE 22.4 mmol/L (21-32); CREATININE 0.5 mg/dL (0.6-1.3); POTASSIUM 3.1 mmol/L (3.5-5.1)
[2021-04-30 07:59] LABS: RED BLOOD CELL COUNT(AUTO) 1.53 MIL/uL (4.20-5.40); WHITE BLOOD COUNT (AUTO) 2.1 K/uL (4.8-10.8)
[2021-04-30 08:00] VITALS: BP 128/55
[2021-04-30 08:02] LABS: HEMOGLOBIN 5.5 g/dL (12.0-16.0); MEAN CORPUSCULAR HEMOGLOBIN 34 pg (27-31); MEAN CORPUSCULAR HGB CONC 35 g/dL (33-37); PLATELET COUNT (AUTO) 38 K/uL (140-450); RED CELL DISTRIBUTION WIDTH 15.9 % (11.6-13.7)
[2021-04-30 08:03] LABS: LYMPHOCYTES % (MANUAL) 13 % (20-46); MONOCYTES % (MANUAL) 7 % (5-12)
[2021-04-30] MEDS: VANCOMYCIN HCL 1.25 GM in DEXTROSE 5% 250 ML IV SCH (08:41)
[2021-04-30] MEDS: MAGNESIUM OXIDE 400 MG TAB PO SCH (09:00)
--- NOTE | 2021-04-30 09:10 | NUR ---
PT HAS PURPLE DISCOLORATION AT PICC LINE SITE, R .BREAST PURPLE DISCOLORATION, ABDOMEN EXHIBITS PETECHIA THROUGHOUT.
[2021-04-30] MEDS: ALBUTEROL SULFATE/IPRATROPIU 3 ML SOL IH SCH ×3 (11:40→18:58)
--- NOTE | 2021-04-30 11:40 | NUR ---
BEGAN TRANSFUSION OF 1 UNIT PRBC, VITALS WERE TAKEN PRIOR TO ADMINISTRATION. PROCEDURE EXPLAINED TO PT WHO COULD NOT VERBALIZE UNDERSTANDING. WILL CONTINUE TO MONITOR PER PROTOCOL.
[2021-04-30] MEDS ORDERED: MAG SULF 2000 MG/WATER PREMIX 50 ML IV PRN (11:55)
[2021-04-30 12:00] VITALS: BP 123/22
[2021-04-30] MEDS ORDERED: diphenhydrAMINE 50 MG/ML VIAL IVP SCH (12:00)
--- NOTE | 2021-04-30 12:05 | NUR ---
ADMINISTERED BENADRYL IV PUSH PER MD ORDER, PT TOLERATED PROCEDURE WELL
[2021-04-30] MEDS ORDERED: CEFEPIME 2,000 MG in DEXTROSE 5% 100 ML IV SCH (13:00)
[2021-04-30] MEDS: LORazepam 2 MG/ML VIAL IM/IVP PRN (13:26)
[2021-04-30 16:00] VITALS: BP 137/61
[2021-04-30] MEDS: POTASSIUM CHLORIDE 40 MEQ, LIDOCAINE MPF 1% 25 MG in NACL 0.9% 250 ML IV PRN (17:58)
--- NOTE | 2021-04-30 19:15 | NUR ---
ENDORSED PT TO FIELD SECRETARY NURSE FOR CONTINUITY OF CARE. PT ON RA. CALL LIGHT WITHIN REACH.
[2021-04-30 20:00] VITALS: BP 155/71
[2021-04-30 20:43] LABS: HEMATOCRIT 28.7 % (36-48); HEMOGLOBIN 9.8 g/dL (12.0-16.0)
[2021-04-30] MEDS: LEVOFLOXACIN 750 MG/D5W PREMIX 150 ML IV SCH (21:53)
--- NOTE | 2021-04-30 21:53 | NUR ---
LEVAQUIN ADMINISTERED PER MD ORDERED.
[2021-04-30] MEDS: levETIRAcetam 1,000 MG in NACL 0.9% 100 ML IV SCH (22:17)
[2021-05-01] VITALS: BP 112/51
[2021-05-01] MEDS: ALBUTEROL SULFATE/IPRATROPIU 3 ML SOL IH SCH ×3 (00:05→13:26)
[2021-05-01 04:00] VITALS: BP 144/66
[2021-05-01] MEDS ORDERED: ceFAZolin 1,000 MG VIAL ONE (05:07)
[2021-05-01] MEDS: BLOOD GLUCOSE MONITORING 1 DEV DEV FS SCH ×4 (07:00→22:03)
--- NOTE | 2021-05-01 07:30 | NUR ---
RECEIVED REPORT FROM BOILERMAKER HELPER RN FOR CONTINUITY OF CARE. PATIENT RESTING IN BED IN SUPINE POSITION. ASLEEP COMFORTABLY ON ROOM AIR. VISIBLE CHEST RISE AND FALLS. NO S/S RESPIRATORY DISTRESS NOTED. IV TO RIGHT UPPER ARM PICC LINE INFUSING IVF D5NS@ 60ML/HR. WOUND AT LEFT UPPER BACK S/P I&D DRESSING INTACT. SAFETY MEASURES IN PLACE, SAFETY MEASURES IN PLACE, CALL LIGHT WITHIN REACH. WILL CONTINUE TO MONITOR.
--- NOTE | 2021-05-01 07:30 | NUR ---
ENDORSED TO MORNING NURSE FOR CONTINUITY OF CARE. PT STABLE.
[2021-05-01 08:00] VITALS: BP 156/68
[2021-05-01 08:37] LABS: ANION GAP 17.3 (8-16); CARBON DIOXIDE 19.1 mmol/L (21-32); CREATININE 1.1 mg/dL (0.6-1.3); POTASSIUM 3.4 mmol/L (3.5-5.1)
[2021-05-01 08:42] LABS: MAGNESIUM 2.2 mg/dL (1.8-2.4); PHOSPHORUS 3.3 mg/dL (2.5-4.9)
[2021-05-01 08:57] LABS: HEMATOCRIT 24.7 % (36-48); HEMOGLOBIN 8.4 g/dL (12.0-16.0); MEAN CORPUSCULAR VOLUME 92.1 fL (80-94); RED BLOOD CELL COUNT(AUTO) 2.68 MIL/uL (4.20-5.40); WHITE BLOOD COUNT (AUTO) 3.1 K/uL (4.8-10.8)
[2021-05-01 08:58] LABS: BASOPHILS % (AUTO) 0.2 % (0.0-2.0); EOSINOPHILS % (AUTO) 0.2 % (0.0-4.0); LYMPHOCYTES % (AUTO) 14.5 % (20.5-51.1); MEAN CORPUSCULAR HEMOGLOBIN 31 pg (27-31); MEAN CORPUSCULAR HGB CONC 34 g/dL (33-37); MONOCYTES % (AUTO) 4.2 % (1.7-9.3); NEUTROPHILS # (AUTO) 2.5 K/uL (1.8-7.7); NEUTROPHILS % (AUTO) 80.9 % (42.2-75.2); PLATELET COUNT (AUTO) 30 K/uL (140-450); RED CELL DISTRIBUTION WIDTH 17.7 % (11.6-13.7)
[2021-05-01 08:59] LABS: LYMPHOCYTES # (AUTO) 0.4 K/uL (2.5-16.5); MONOCYTES # (AUTO) 0.1 K/uL (0.8-1.0)
[2021-05-01] MEDS: MAGNESIUM OXIDE 400 MG TAB PO SCH (09:00)
[2021-05-01] MEDS: levETIRAcetam 1,000 MG in NACL 0.9% 100 ML IV SCH ×2 (09:05→22:06)
[2021-05-01] MEDS: DEXT 5% /NACL 0.9% 1,000 ML IV SCH ×2 (09:05→23:05)
[2021-05-01] MEDS ORDERED: KCL 20 MEQ/WATER INJ PREMIX 100 ML IV ONE (09:50)
[2021-05-01 12:00] VITALS: BP 138/80
[2021-05-01] MEDS: INSULIN LISPRO SLIDING SCALE 100 UNITS/ML VIAL SUBQ PRN ×2 (12:00→22:04)
--- NOTE | 2021-05-01 12:00 | NUR ---
2 UNITS OF HUMALOG GIVEN FOR BS LEVEL 181. PATIENT RESTING IN BED WITH LITTLE BIT RESTLESS, REORIENTED THE PATIENT. WILL CONTINUE TO MONITOR.
--- NOTE | 2021-05-01 13:00 | NUR ---
WOUND CARE PERFORMED. WOUND PHOTOS TAKEN. PATIENT TOLERATED THE PROCEDURE WELL.
[2021-05-01 16:00] VITALS: BP 136/73
--- NOTE | 2021-05-01 16:25 | NUR ---
PATIENT'S BS LEVEL 150, NO INSULIN COVERAGE NEEDED. PATIENT RESTING IN BED WITH CONFUSION. IVF INFUSING ORDERED. NO ACUTE DISTRESS NOTED. WILL CONTINUE TO MONITOR.
--- NOTE | 2021-05-01 19:10 | NUR ---
ENDORSED PATIENT TO EPIDEMIOLOGIST RN FOR CONTINUITY OF CARE. PATIENT IN STABLE CONDITION.
--- NOTE | 2021-05-01 19:11 | NUR ---
RECEIVED PATIENT FROM NURSE FOR CONTINUITY OF CARE. PATIENT IS RESTING IN BED WITH EYE OPEN SPONTANEOUS. RESPONSE TO NAME. RESPIRATORY EVEN AND UNLABORED, ON ROOM AIR, NO SIGN OF RESPIRATORY DISTRESS NOTED. SKIN WARM, DRY, NON DIAPHORETIC. WOUND AT LEFT UPPER BACK FROM I&D, DRESSING INTACT. PICC LINE NOTED ON RIGHT UPPER ARM, IS INFUSING FLUID @60ML/HR. CARMEL CATH RIGHT UPPER CHEST. PLAN OF CARE DISCUSSED. PRECAUTION IN PLACE. CALL LIGHT WITHIN REACH. WILL CONTINUE TO MONITOR. Addendum: 05/01/21 at 2129 by Will Christiansen RN RN CARDONA IN PLACE, URINE CLEAR YELLOW.
[2021-05-01] MEDS ORDERED: ALBUTEROL HFA MDI 90 MCG/ACTUATION 8 GM INH PRN (19:45)
[2021-05-01 20:00] VITALS: BP 154/92
[2021-05-01] MEDS: LEVOFLOXACIN 750 MG/D5W PREMIX 150 ML IV SCH (20:18)
--- NOTE | 2021-05-01 20:18 | NUR ---
SCHEDULE MEDICATION GIVEN WITH EDUCATION. PATIENT IS AWAKE, EYE OPEN SPONTANEOUS. NO SIGN OF DISTRESS NOTED. PRECAUTION IN PLACE. CALL LIGHT WITHIN REACH. WILL CONTINUE TO MONITOR.
--- NOTE | 2021-05-01 20:36 | NUR ---
PATIENT'S DAUGHTER, CATA, CALLED TO UPDATE PATIENT'S CONDITION. ALL QUESTIONS ANSWERED. WILL FOLLOW UP WITH ANY CHANGE.
--- NOTE | 2021-05-01 22:03 | NUR ---
BLOOD SUGAR CHECK 185. 2UNITS OF INSULIN AND SCHEDULE MEDICATIONS GIVEN WITH EDUCATION. PATIENT IS AWAKE, EYE OPEN SPONTANEOUS. NO SIGN OF DISTRESS NOTED. PRECAUTION IN PLACE. CALL LIGHT WITHIN REACH. WILL CONTINUE TO MONITOR.
[2021-05-02] VITALS: BP 149/90
--- NOTE | 2021-05-02 | NUR ---
ROUND CHECK. PATIENT IS RESTING IN BED. CHEST RISE AND FALL NOTED. ASKING FOR WATER, EDUCATED NPO STATUS. PRECAUTION IN PLACE. CALL LIGHT WITHIN REACH. WILL CONTINUE TO MONITOR.
--- NOTE | 2021-05-02 02:00 | NUR ---
ROUND CHECK. PATIENT IS SLEEPING, CHEST RISE AND FALL NOTED. NO SIGN OF RESPIRATORY DISTRESS NOTED. PRECAUTION IN PLACE. CALL LIGHT WITHIN REACH. WILL CONTINUE TO MONITOR.
[2021-05-02 04:00] VITALS: BP 155/73
--- NOTE | 2021-05-02 04:00 | NUR ---
ROUND CHECK. PATIENT IS SLEEPING, CHEST RISE AND FALL NOTED. NO SIGN OF RESPIRATORY DISTRESS. PRECAUTION IN PLACE. CALL LIGHT WITHIN REACH. WILL CONTINUE TO MONITOR.
--- NOTE | 2021-05-02 06:00 | NUR ---
PATIENT IS RESTING, EYE OPEN SPONTANEOUS. NO SIGN OF RESPIRATORY DISTRESS NOTED. PRECAUTION IN PLACE. CALL LIGHT WITHIN REACH. WILL CONTINUE TO MONITOR.
[2021-05-02] MEDS: BLOOD GLUCOSE MONITORING 1 DEV DEV FS SCH ×4 (06:45→20:24)
[2021-05-02] MEDS: INSULIN LISPRO SLIDING SCALE 100 UNITS/ML VIAL SUBQ PRN ×2 (06:46→11:54)
[2021-05-02 07:05] LABS: PHOSPHORUS 3.2 mg/dL (2.5-4.9)
--- NOTE | 2021-05-02 07:05 | NUR ---
ENDORSED PATIENT TO AM NURSE FOR CONTINUITY OF CARE. PATIENT IS STABLE.
[2021-05-02 07:12] LABS: ANION GAP 18.3 (8-16); CARBON DIOXIDE 18.2 mmol/L (21-32); CREATININE 1.2 mg/dL (0.6-1.3); POTASSIUM 3.5 mmol/L (3.5-5.1)
--- NOTE | 2021-05-02 07:15 | NUR ---
REC'D REPORT FROM [facility] SHIFT NURSE, PT AWAKE, MOANING WHICH IS BASELINE FOR PT'S CONDITION. CARDONA IN PLACE, TELEMONITOR IN PLACE. R. UA PICC LINE PATENT, INFUSING D5/NS AT 60ML/HR. CALL LIGHT WITHIN REACH, ALL SAFETY MEASURES IN PLACE
[2021-05-02 07:23] LABS: HEMATOCRIT 23.4 % (36-48); MEAN CORPUSCULAR HEMOGLOBIN 31 pg (27-31); MEAN CORPUSCULAR HGB CONC 34 g/dL (33-37); MEAN CORPUSCULAR VOLUME 91.6 fL (80-94); RED BLOOD CELL COUNT(AUTO) 2.56 MIL/uL (4.20-5.40)
[2021-05-02 07:24] LABS: BASOPHILS % (AUTO) 0.2 % (0.0-2.0); EOSINOPHILS % (AUTO) 0.2 % (0.0-4.0); LYMPHOCYTES # (AUTO) 0.3 K/uL (2.5-16.5); LYMPHOCYTES % (AUTO) 9.5 % (20.5-51.1); MONOCYTES # (AUTO) 0.1 K/uL (0.8-1.0); NEUTROPHILS # (AUTO) 2.5 K/uL (1.8-7.7); NEUTROPHILS % (AUTO) 86.1 % (42.2-75.2); PLATELET COUNT (AUTO) 25 K/uL (140-450)
[2021-05-02 07:25] LABS: WHITE BLOOD COUNT (AUTO) 2.9 K/uL (4.8-10.8)
[2021-05-02 08:00] VITALS: BP 159/95
[2021-05-02] MEDS: MAGNESIUM OXIDE 400 MG TAB PO SCH (08:28)
--- NOTE | 2021-05-02 08:30 | NUR ---
ADMINISTERED PO MEDICATIONS PER MD ORDER, MEDICATION WAS CRUSHED AND GIVEN WITH WATER TO FACILITY SWALLOWING, PT WAS ABLE TO SWALLOW WITHOUT COMPLICATION. MOA AND SIDE EFFECTS WERE DISCUSSED WITH PT WHO COULD NOT VERBALIZED UNDERSTANDING. WILL CONTINUE TO MONITOR
[2021-05-02] MEDS: levETIRAcetam 1,000 MG in NACL 0.9% 100 ML IV SCH ×2 (09:54→22:30)
--- NOTE | 2021-05-02 09:55 | NUR ---
ADMINISTERED IV MEDICATION PER MD ORDER. MOA AND SIDE EFFECTS DISCUSSED WITH PT WHO COULD NOT VERBALIZE UNDERSTANDING. PT TOLERATED MEDICATION WELL.
--- NOTE | 2021-05-02 10:40 | NUR ---
PT MOANS, STATES BODY HURTS, FALLS BACK TO SLEEP WHILE TALKING, THEN STATES SHE DOES NOT HAVE PAIN, BUT CONTINUE TO MOAN, WILL MEDICATE WITH LOWEST STRENGTH MEDICATION.
[2021-05-02] MEDS: MORPHINE SULFATE 2 MG/ML SYR IVP PRN (10:42)
--- NOTE | 2021-05-02 11:06 | NUR ---
Social Service Note: HAY RAKE OPERATOR received order for hospice evaluation. HAY RAKE OPERATOR placed call to pt's dtr- Iliana ([phone]); HAY RAKE OPERATOR spoke with pt's dtr about hospice evaluation order. Pt's dtr states that she spoke to the physician this morning and is in agreement for hospice. Pt's dtr states that she does not have a preference in hospice agency. Pt's dtr states that she would like her mother to go to a SNF close to [place] and a SNF that allows visitation. HAY RAKE OPERATOR explained how the hospice evaluation order would be taking place. Pt's dtr is agreeable to speaking with [facility]. [facility] has faxed pt's information and order to [facility] ([phone] [phone]). HAY RAKE OPERATOR will remain available for support and will follow up as needed. Addendum: 05/03/21 at 1301 by Luda Espinoza CM Pt has been accepted at [facility] under [facility]; HAY RAKE OPERATOR has been speaking with Colleen at [facility]. Transportation has been arranged with [employer]; picking belt operator at 2:00pm. Colleen states that she already received report from pt's nurse. Colleen has spoken to pt's daughter who is aware and agreeable to pt's transfer. HAY RAKE OPERATOR spoke with Dr. Saeed to alert him of DC plan, Dr. Saeed will write DC order.
[2021-05-02 12:00] VITALS: BP_SYST 104; BP_SYST 138; BP_DIAS 52; BP_DIAS 87
--- NOTE | 2021-05-02 12:00 | NUR ---
CHANGED LEFT UPPER BACK DRESSING PER MD ORDER. REMOVED DRESSING AND IRRIGATED WITH NORMAL SALINE. USED STERILE TECHNIQUE TO PACK DRESSING, USING STERILE GLOVES AND MAINTAINING STERILITY PACKED KERLIX SATURATED IN NORMAL SALINE ONTO WOUND INCLUDING SIDE POCKET. COVERED WITH ISLAND DRESSING, LEFT UPPER ARM PACKING CHANGED OUT, USING STERILE TECHNIQUE REPLACE WET TO DRY DRESSING USING 2X2 SATURATED IN NORMAL SALINE AND COVERED WITH ISLAND DRESSING. SECOND L. UPPER ARM DRESSING REPLACED WET TO DRY DRESSING USING 2X2 SATURATED IN NORMAL SALINE AND COVERED WITH ISLAND DRESSING. L POSTERIOR AXILLA WOUND, SUPERFICIAL, COVERED WITH 2X2 SATURATED GAUZE AND COVERED WITH ISLAND DRESSING. PT TOLERATED PROCEDURE WELL.
--- NOTE | 2021-05-02 12:50 | NUR ---
PT ATE 20% OF MEAL, GAVE ENSURE VIA STRAW, PT ABLE TO SWALLOW WITHOUT COMPLICATION. WILL CONTINUE TO MONITOR. CALL LIGHT WITHIN REACH. ALL SAFETY MEASURES IN PLACE.
--- NOTE | 2021-05-02 14:23 | NUR ---
05/02/21 RD FOLLOW UP COMPLETED PLEASE REFER TO NUTRITION ASSESSMENT UNDER CARE ACTIVITY FOR ESTIMATED NUTRITIONAL NEEDS. 1. CONTINUE PUREE DIET WITH NECTAR THICK LIQUIDS PER ENVIRONMENTAL SERVICES DIRECTOR 2. RECOMMEND GLUCERNA TID AND GEGE BID 3. ASSIST AND ENSURE PO INTAKE 4. RD TO FOLLOW-UP 2-3 DAYS, HIGH RISK FRANCISCO J CARDENAS, RD
--- NOTE | 2021-05-02 15:11 | NUR ---
PT SLEEPING, MOANING IN SLEEP, CALL LIGHT WITHIN REACH. ALL SAFETY MEASURES IN PLACE.
[2021-05-02] MEDS: DEXT 5% /NACL 0.9% 1,000 ML IV SCH (15:45)
[2021-05-02 16:00] VITALS: BP 131/75
--- NOTE | 2021-05-02 16:18 | NUR ---
SPOKE TO DAUGHTER TO UPDATE ON PT'S MEDICAL STATUS, HELD PHONE TO PT'S EAR FOR DAUGHTER TO BE ABLE TO SPEAK TO HER. HAD SHORT CONVERSATION, PER DAUGHTER , SHE FEELS PT MIGHT BE UNDER DISTRESS AND WOULD LIKE MORPHINE TO BE ADMINISTERED FOR POSSIBLE PAIN 5/10, CALL LIGHT WITHIN REACH, ALL SAFETY MEASURES IN PLACE.
[2021-05-02] MEDS: MORPHINE SULFATE 4 MG/ML SYR IV PRN (16:27)
[2021-05-02] MEDS ORDERED: CLOTRIMAZOLE 1% 30 GM CRM TUBE TP SCH (16:45)
--- NOTE | 2021-05-02 17:30 | NUR ---
ADMINISTERED TP PER MD ORDER, MOA AND SIDE EFFECTS DISCUSSED WITH PT WHO COULD NOT VERBALIZE UNDERSTANDING, WASHED PT'S HANDS WHICH WERE LIGHTLY BLOOD FROM SCRATCHING VAGINAL LABIA. PT TOLERATED MEDICATION WELL
--- NOTE | 2021-05-02 19:23 | NUR ---
PT WAS SEEN AND ASSESSED. FOUND PT ON ROOM AIR WITH SPO2 99%. PT IS IN NO RESPIRATORY DISTRESS AT THIS TIME. WILL CONTINUE TO MONITOR PT.
--- NOTE | 2021-05-02 19:31 | NUR ---
ENDORSED PT TO SUPERVISOR ENGINE REPAIR NURSE ,PT SLEEPING, NO SIGN OF DISTRESS. CALL LIGHT WITHIN REACH. ALL SAFETY MEASURES IN PLACE
--- NOTE | 2021-05-02 19:32 | NUR ---
RECEIVED BEDSIDE REPORT FROM DAY RN. PT APPEARS TO BE ASLEEP. CHEST RISE AND FALL NOTED. RESPIRATIONS ARE EQUAL AND UNLABORED ON RA. SAT WELL 94%. HAS GERBER PICC LINE IVF INFUSING PER ORDERS. PT S/P I&D ON L UPPER BACK AND L UPPER ARM DRESSING IS C/D/I. PT WITH CARDONA CATH IN PLACE. DRAINING YELLOW URINE. HAS NOT ATE DINNER YET. ON CONTACT/DROPLET R/O COVID. SIGN IN DOOR. CALL LIGHT IS WITHIN REACH. WILL CONTINUE TO MONITOR.
[2021-05-02 20:00] VITALS: BP 114/64
[2021-05-02] MEDS: CLOTRIMAZOLE 1% 30 GM CRM TUBE TP SCH (20:24)
--- NOTE | 2021-05-02 20:26 | NUR ---
ANCEF NOW INFUSING PER ORDERS. PT VERY LETHARGIC OPEN EYES AND MUMBLES DIFFICULT TO UNDERSTAND. MED EDUCATION GIVEN. BS 147 NO COVERAGE NEEDED. CALL LIGHT IS WITHIN REACH. WILL CONTINUE TO MONITOR.
[2021-05-02] MEDS: LEVOFLOXACIN 750 MG/D5W PREMIX 150 ML IV SCH (21:03)
--- NOTE | 2021-05-02 22:00 | NUR ---
MADE ROUNDS. PT APPEARS TO BE ASLEEP WITH EYES CLOSED. CHEST RISE AND FALL NOTED. CALL LIGHT IS WITHIN REACH.
[2021-05-03] VITALS: BP 116/74
--- NOTE | 2021-05-03 | NUR ---
VITAL SIGNS ARE WITHIN NORMAL LIMITS. ALL NEEDS MET. CALL LIGHT IS WITHIN REACH.
--- NOTE | 2021-05-03 02:21 | NUR ---
ROUNDS MADE. PT APPEARS TO BE ASLEEP CHEST RISE AND FALL NOTED. CALL LIGHT IS WITHIN REACH. WILL CONTINUE TO MONITOR.
[2021-05-03 04:00] VITALS: BP 137/72
--- NOTE | 2021-05-03 04:15 | NUR ---
VITAL SIGNS ARE WITHIN NORMAL LIMITS. ALL NEEDS MET. CALL LIGHT IS WITHIN REACH. WILL CONTINUE TO MONITOR.
[2021-05-03] MEDS: BLOOD GLUCOSE MONITORING 1 DEV DEV FS SCH ×2 (06:05→11:56)
--- NOTE | 2021-05-03 06:05 | NUR ---
BS 173 HELD COVERAGE D/T PT HAS POOR PO INTAKE. ADMIN PRN ZOFRAN FOR C/C NAUSEA. WILL CONTINUE TO MONITOR.
--- NOTE | 2021-05-03 07:31 | NUR ---
GAVE BEDSIDE REPORT TO DAY RN. PT ENDORSED IN STABLE CONDITION.
--- NOTE | 2021-05-03 07:35 | NUR ---
PT RECEIVED FROM DESK SERGEANT RN. PT IS RESTING IN BED COMFORTABLY. EYES OPEN NO S/S OF DISTRESS AT THIS TIME. ALL SAFETY MEASURES ARE IN PLACE. CALL LIGHT IS WITHIN REACH
[2021-05-03 08:00] VITALS: BP 103/95
[2021-05-03] MEDS: DEXT 5% /NACL 0.9% 1,000 ML IV SCH (08:25)
--- NOTE | 2021-05-03 08:25 | NUR ---
SATURATION 87% ON ROOM AIR PLACED ON SUPPLEMENTAL OXYGEN AT 2 LPM VIA NC AT THIS TIME BRIDGE WORKER TO MONITOR AND TITRATE TOLERATED
--- NOTE | 2021-05-03 08:50 | NUR ---
PT ASSISTED WITH MEAL. PT AT1 25% , AND MILKSHAKE PROVIDED. 50% GLUCERNA. PT EDUCATED REINFORCEMENT NEEDED. DENIES PAIN AT THIS TIME
[2021-05-03] MEDS: MAGNESIUM OXIDE 400 MG TAB PO SCH (09:34)
[2021-05-03] MEDS: levETIRAcetam 1,000 MG in NACL 0.9% 100 ML IV SCH (09:34)
[2021-05-03] MEDS: CLOTRIMAZOLE 1% 30 GM CRM TUBE TP SCH (09:35)
--- NOTE | 2021-05-03 09:50 | NUR ---
MEDICATIONS GIVEN PER MD ORDER. PT EDUCATED VERBALIZED UNDERSTANDING.REINFORCEMENT NEEDED. PT REPOSITIONED CHANGED .
--- NOTE | 2021-05-03 11:25 | NUR ---
WOUND CARE NURSE AT BEDSIDE. PT EDUCATED. PT VERBALIZED UNDERSTANDING. REINFORCEMENT NEEDED.
--- NOTE | 2021-05-03 11:37 | NUR ---
REPORT WAS GIVEN TO SHELBI WITH [facility] FOR CONTINUITY OF CARE. RN VERBALIZED UNDERSTANDING.
[2021-05-03] MEDS: INSULIN LISPRO SLIDING SCALE 100 UNITS/ML VIAL SUBQ PRN (11:54)
--- NOTE | 2021-05-03 11:56 | NUR ---
BG ASSESSED. 219. MEDICATIONS GIVEN PER MD ORDER. PT EDUCATED VERBALIZED UNDERSTANDING. PT IN NO S/S OF DISTRESS AT THIS TIME. ALL SAFETY MEASURES ARE IN PLACE
[2021-05-03] MEDS ORDERED: CEPH250C16 PO (12:59)
[2021-05-03] MEDS ORDERED: LEVO750T51 PO (12:59)
[2021-05-03] MEDS ORDERED: HYDR2TAB6 PO (12:59)
[2021-05-03] MEDS ORDERED: INSU100S22 SUBQ (12:59)
--- NOTE | 2021-05-03 13:12 | NUR ---
WOUND CARE EVALUATION NOTE: S/P I&D WOUND ASSESSMENT DONE , PT IS AWAKE BUT CONFUSED, COOPERATE WITH CARE. -LEFT UPPER CHEST, SURGICAL WOUND 0.3X0.3CM SUPERFICIAL DEPTH, WOUND BED 100% RED GRANULATING TISSUE, NO, ODOR, LOIS WOUND SKIN MOIST AND INTACT. -LEFT ANTERIOR UPPER ARM SURGICAL WOUND 0.5X0.5X0.3CM, WOUND BED 100% RED GRANULATING TISSUE, NO, ODOR, LOIS WOUND SKIN MOIST AND INTACT. NO PAIN. -LEFT POSTERIOR UPPER ARM SURGICAL WOUND 1.5X0.5X0.1CM WOUND BED 100% RED GRANULATING TISSUE, NO, ODOR, LOIS WOUND SKIN MOIST AND INTACT. NO PAIN. -LEFT MID BACK SURGICAL WOUND [id number] WOUND BED 100% RED GRANULATING TISSUE, SMALL AMOUNT SEROUS DRAINAGE, NO, ODOR, LOIS WOUND SKIN DRY AND INTACT, PAIN 3/10 -MAD TO PERINEUM SKIN RED AND MOIST, INTACT RECOMMENDATIONS: -CLEANSE SURGICAL WOUNDS LEFT UPPER ARM AND LEFT MID BACK WITH WOUND NS SOLUTION, PAT DRY, PACK ADAPTIC DRESSING TO WOUND BED AND COVER WITH DRY DRESSING/ABDOMINAL PAD QD AND PRN IF SOILING -TURN AND REPOSITION PATIENT Q 2H, OFFLOADING LEFT BACK -ASSESS AND MONITOR SKIN CONDITION DURING POSITION CHANGE -OFFLOAD BILATERAL HEELS BY PLACING PILLOWS UNDER CALVES AT ALL TIMES, UNLESS OTHERWISE CONTRAINDICATED -PRESSURE REDISTRIBUTION BY PLACING PILLOWS AND OFFLOADING SACRALCOCCYX -KEEP SKIN CLEAN AND DRY AT ALL TIMES. Addendum: 05/03/21 at 1327 by William Jo RN (Grace) CORRECTION: -LEFT POSTERIOR UPPER ARM SURGICAL WOUND 1.5X0.5X0.3CM WOUND BED 100% RED GRANULATING TISSUE, NO, ODOR, LOIS WOUND SKIN MOIST AND INTACT. NO PAIN.
[2021-05-03 13:25] VITALS: BP 103/85
[2021-05-03] MEDS: HYDROmorphone 1 MG/ML AMP IVP PRN (14:07)
--- NOTE | 2021-05-03 16:02 | NUR ---
PT LEFT UNIT WITH SUNRISE. PT IN STABLE CONDITION DISCHARGE INSTRUCTIONS COMPLETE PT VERBALIZED UNDERSTANDING REINFORCEMENT NEEDED. PTS ARM BANDS REMOVED. TELEMETRY BOX REMOVED
--- NOTE | 2021-05-04 08:41 | NUR ---
TALKED TO CATA DAUGHTER WILL RESPIRATORY CARE FACULTY WHEELCHAIR.
[2021-05-04] MEDS ORDERED: GAUZE TP SCH (13:00)
== END 2021-05-03 16:02 | disposition home or self-care (01) | DRG 383 ==
LOC: MED 16:38 → MTU 19:38
PROC: 02HV33Z Insertion of Infusion Device into Superior Vena Cava, Percutaneous Approach (ICD-10-PCS; 2021-04-25)
PROC: B548ZZA Ultrasonography of Superior Vena Cava, Guidance (ICD-10-PCS; 2021-04-25)
PROC: 0JBF0ZZ Excision of Left Upper Arm Subcutaneous Tissue and Fascia, Open Approach (ICD-10-PCS; 2021-04-27)
PROC: 30240N1 Transfusion of Nonautologous Red Blood Cells into Central Vein, Open Approach (ICD-10-PCS; principal; 2021-04-30)
DX: L02.412 Cutaneous abscess of left axilla (principal); J69.0 Pneumonitis due to inhalation of food and vomit; M72.6 Necrotizing fasciitis; G93.41 Metabolic encephalopathy; C79.31 Secondary malignant neoplasm of brain; D61.818 Other pancytopenia; E44.1 Mild protein-calorie malnutrition; B95.61 Methicillin susceptible Staphylococcus aureus infection as the cause of diseases classified elsewhere; E11.9 Type 2 diabetes mellitus without complications; L02.419 Cutaneous abscess of limb, unspecified; E87.1 Hypo-osmolality and hyponatremia; E83.42 Hypomagnesemia; E78.5 Hyperlipidemia, unspecified; Z90.12 Acquired absence of left breast and nipple; Z20.822 Contact with and (suspected) exposure to COVID-19; Z68.21 Body mass index [BMI] 21.0-21.9, adult; I10 Essential (primary) hypertension; Z92.21 Personal history of antineoplastic chemotherapy; K80.20 Calculus of gallbladder without cholecystitis without obstruction; D64.9 Anemia, unspecified; D72.819 Decreased white blood cell count, unspecified; Z68.25 Body mass index [BMI] 25.0-25.9, adult; L02.414 Cutaneous abscess of left upper limb; Z85.3 Personal history of malignant neoplasm of breast
CPT/HCPCS: 36415; 70450; 71045; 71250; 73562; 76536; 76881; 80048; 80053; 80202; 80305; 81003; 82948; 83036; 83605; 83690; 83735; 83880; 84100; 84134; 84436; 84439; 84443; 84484; 85018; 85025; 85610; 85730; 86886; 86900; 86901; 86920; 87040; 87070; 87075; 87081; 87086; 87186; 87205; 88304; 92610; 92700; 94640; 96361; 96365; 97110; 97112; 97163-GP; 97530; 99285; J0330; J0690; J0692; J0696; J1170; J1200; J1815; J1953; J1956; J2001; J2060; J2270; J2405; J2710; J2765; J2997; J3010; J3370; J3475; J3480; J3490; J7030; J7060; P9016; U0003